=== PATIENT | male | born 1950 | race Caucasian/White ===

== ENCOUNTER 2019-11-11 11:10 | Emergency (ER) | payer MEDICARE, OTHER ==
[~2019-11-11] VITALS: Ht 190.5 cm; Wt 103.9 kg
[~2019-11-11 11:10] MED LIST: ASPI-482 PO; FLUT9.9S NS; LORA10TA68 PO
[2019-11-11 11:15] VITALS: BP 126/67
--- NOTE | 2019-11-11 12:11 | PHYS DOC ---
General Adult EDM: Chief Complaint: LACERATION/AVULSION HPI: HPI: 69-year-old male presents with laceration of the right ring finger. The patient was working on a car when some piece of metal where he was working cut his finger. His tetanus is not up-to-date. He thought it looked like he needs stitches so he came to the emergency room. Bleeding was controlled prior to arrival. He denies any other injuries or complaints. Review of Systems: Review of Systems: Constitutional: Denies fever or chills Eyes: Denies change in visual acuity HENT: Denies nasal congestion or sore throat Respiratory: Denies cough or shortness of breath Cardiovascular: Denies chest pain or edema GI: Denies abdominal pain, nausea, vomiting, bloody stools or diarrhea : Denies dysuria Musculoskeletal: Denies back pain or joint pain Integument: 3 cm laceration above the right ring finger Neurologic: Denies headache, focal weakness or sensory changes Endocrine: Denies polyuria or polydipsia Lymphatic: Denies swollen glands Psychiatric: Denies depression or anxiety Heart Score: Risk Factors: Risk Factors: DM, Current or recent (<one month) smoker, HTN, HLP, family history of CAD, obesity. Risk Scores: Score 0 - 3: 2.5% MACE over next 6 weeks - Discharge Home Score 4 - 6: 20.3% MACE over next 6 weeks - Admit for Clinical Observation Score 7 - 10: 72.7% MACE over next 6 weeks - Early Invasive Strategies Allergies: Allergies: Allergies Coded Allergies Type Severity Reaction Last Updated Verified Penicillins Allergy Mild RASH 12/05/14 Yes codeine Allergy Mild RASH 12/05/14 Yes Physical Exam: PE: Constitutional: Well developed, well nourished, no acute distress, non-toxic appearance. [] HENT: Normocephalic, atraumatic, bilateral external ears normal, oropharynx moist, no oral exudates, nose normal. [] Eyes: PERRLA, EOMI, conjunctiva normal, no discharge. [] Neck: Normal range of motion, no tenderness, supple, no stridor. [] Cardiovascular:Heart rate regular rhythm, no murmur [] Lungs & Thorax: Bilateral breath sounds clear to auscultation [] Abdomen: Bowel sounds normal, soft, no tenderness, no masses, no pulsatile masses. [] Skin: 3 cm linear laceration of the right ring finger [] Back: No tenderness, no CVA tenderness. [] Extremities: No tenderness, no cyanosis, no clubbing, ROM intact, no edema. [] Neurologic: Alert and oriented X 3, normal motor function, normal sensory function, no focal deficits noted. [] Psychologic: Affect normal, judgement normal, mood normal. [] Current Patient Data: Vital Signs: Vital Signs Date Time Temp Pulse Resp B/P (MAP) Pulse Ox O2 Delivery O2 Flow Rate FiO2 11/11/19 11:10 97.8 72 16 126/67 (86) 97 Room Air EKG: EKG: [] Radiology/Procedures: Radiology/Procedures: [] Course & Med Decision Making: Course & Med Decision Making Pertinent Labs and Imaging studies reviewed. (See chart for details) I repaired the patient's laceration with sutures. See note below for more details. He was given a tetanus shot in the emergency room. He is stable for discharge at this time. [] Dragon Disclaimer: Dragon Disclaimer: This electronic medical record was generated, in whole or in part, using a voice recognition dictation system. Laceration Repair Lac Repair Indication: [] 3 cm laceration right ring finger Procedure: I obtained verbal consent from the patient for suture repair of the laceration of his right ring finger. The wound was anesthetized with 1% lidocaine without epinephrine. A total of 1.5 cc was used. Once good anesthesia was achieved, I irrigated the wound with saline under pressure. There were no foreign bodies. I repaired the wound with four 3-0 Ethilon sutures in interrupted fashion. There was good skin approximation. Bleeding was controlled. The patient's tetanus was updated in the emergency room. Total repaired wound length: [3 cm Other Items: None The patient tolerated the procedure well Complications: [None. Departure Departure: Impression: Primary Impression: Laceration of right ring finger Qualified Codes: S61.214A - Laceration without foreign body of right ring finger without damage to nail, initial encounter Disposition: 01 HOME/RESIDENCE PRIOR TO ADM Condition: STABLE Referrals: MAIRA MACHADO MD (PCP) Patient Instructions: Sutured Wound Care, [id number] Justification of Admission: Justification of Admission: Justification of Admission Dx: N/A CHRISTOPHER HERNANDES DO Nov 11, 2019 12:11
[2019-11-11] MEDS ORDERED: DIPH,PERTUSS(ACELL),TET VAC/PF 0.5 ML SYRINGE. VAX IM ONE (12:15)
== END 2019-11-11 12:20 | disposition home or self-care (01) ==
LOC: ER 11:10
DX: S61.214A Laceration without foreign body of right ring finger without damage to nail, initial encounter (principal); Z88.0 Allergy status to penicillin; Z88.5 Allergy status to narcotic agent; W26.8XXA Contact with other sharp object(s), not elsewhere classified, initial encounter; Y93.89 Activity, other specified; Y92.89 Other specified places as the place of occurrence of the external cause; Y99.8 Other external cause status
CPT/HCPCS: 12001; 90471; 90715; 99283-25

== ENCOUNTER → 2020-04-08 | Outpatient (CLI) | payer MEDICARE, OTHER ==
--- NOTE | 2020-04-08 08:44 | RAD ---
EXAM: Abdominal aortic sonogram. HISTORY: Aneurysm screen. TECHNIQUE: Sonographic imaging of the abdominal aorta was performed. COMPARISON: None. FINDINGS: The proximal abdominal aorta measures 2.1 cm in caliber. The mid abdominal aorta measures 2 .4 cm in caliber. The distal abdominal aorta measures 2.1 cm in caliber. The common iliac arteries me asure 1.1 cm and 1.4 cm. IMPRESSION: No sonographic evidence of an abdominal aortic aneurysm. Electronically signed by: Virginia Schroeder MD (04/08/2020 8:42 AM) [id number]
== END ==
LOC: US 07:48
PROVIDERS: ATTEND Specialist
DX: Z00.00 Encounter for general adult medical examination without abnormal findings (principal); Z87.891 Personal history of nicotine dependence
CPT/HCPCS: 76770

== ENCOUNTER → 2020-05-17 | Outpatient (CLI) | payer MEDICARE, OTHER | LOC: LAB 10:00 | PROVIDERS: ATTEND Nurse Anesthetist, Certified Registered | DX: Z01.812 Encounter for preprocedural laboratory examination (principal); Z20.822 Contact with and (suspected) exposure to COVID-19 | CPT/HCPCS: U0003 ==

== ENCOUNTER → 2020-05-21 | Day surgery (SDC) | payer MEDICARE, OTHER ==
[~2020-05-21] MED LIST changes: +IPRATRPIUM/ALBUTEROL 0.5/2.5MG 3 ML NEBU. NEB PRN; +IV RINGERS SOLUTION,LACTATED 1,000 ML IV SCH; +LIDOCAINE 2% PF 5 ML VIAL. ONE; +MIDAZOLAM HCL PF 2 MG/2 ML VIAL. IV ONE; +ONDANSETRON PF 4 MG/2 ML VIAL. IV PRN; +PROPOFOL 10,000 MCG/ML (20ML) VIAL IV ONE
[2020-05-21 09:05] VITALS: BP 115/66
== END | disposition home or self-care (01) ==
LOC: SURG 07:25
PROVIDERS: ATTEND Internal Medicine Gastroenterology
DX: Z12.11 Encounter for screening for malignant neoplasm of colon (principal); K57.30 Diverticulosis of large intestine without perforation or abscess without bleeding; Z80.0 Family history of malignant neoplasm of digestive organs; Z86.010 Personal history of colon polyps; Z79.899 Other long term (current) drug therapy; Z88.0 Allergy status to penicillin; Z88.5 Allergy status to narcotic agent; Z79.82 Long term (current) use of aspirin; Z72.89 Other problems related to lifestyle; Z87.891 Personal history of nicotine dependence
CPT/HCPCS: G0105; J2001; J2704; J7120; 45378

== ENCOUNTER → 2020-07-30 | Outpatient (CLI) | payer MEDICARE, OTHER ==
[~2020-07-30] MED LIST changes: +IOHEXOL 350 MG/ML 100 ML VIAL. IV ONE; -IPRATRPIUM/ALBUTEROL 0.5/2.5MG 3 ML NEBU. NEB PRN; -IV RINGERS SOLUTION,LACTATED 1,000 ML IV SCH; -LIDOCAINE 2% PF 5 ML VIAL. ONE; -MIDAZOLAM HCL PF 2 MG/2 ML VIAL. IV ONE; -ONDANSETRON PF 4 MG/2 ML VIAL. IV PRN; -PROPOFOL 10,000 MCG/ML (20ML) VIAL IV ONE
--- NOTE | 2020-07-30 13:49 | RAD ---
CTA OF THE CHEST WITH AND WITHOUT CONTRAST Clinical indications: Left-sided chest pain for 3 weeks Technique: Noncontrast axial localizer was performed. After IV infusion of contrast, helical CT scann ing of the chest was performed using the CTA pulmonary embolism protocol. Coronal and sagittal MIP re constructions were generated. PQRS compliance Statement One or more of the following individualized dose reduction techniques were utilized for this study: 1. Automated exposure control 2. Adjustment of the mA and/or kV according to patient size 3. Use of iterative reconstruction technique Comparison: None available. Findings: No pulmonary embolism is seen. No focal aneurysmal dilatation or dissection of the thoracic aorta is seen. Excluding pericardial fat, the heart size is within normal limits. No pericardial eff usion is seen. No enlarged thoracic lymphadenopathy is seen. No pleural effusion or pneumothorax is e vident. There is linear atelectasis of the inferior segment of the lingula. No lung mass or lung cons olidation is seen. The proximal bronchial tree is patent. No adrenal mass is seen. There is a moderat e compression fracture of T12. IMPRESSION: No pulmonary embolism. No acute consolidative lung infiltrate. Moderate compression fracture of T12 of indeterminate age. Electronically signed by: Kamran Enciso MD (07/30/2020 1:46 PM) [id number]
== END ==
LOC: CT 13:12
PROVIDERS: ATTEND Specialist
DX: J98.11 Atelectasis (principal); S22.089A Unspecified fracture of T11-T12 vertebra, initial encounter for closed fracture; X58.XXXA Exposure to other specified factors, initial encounter; Y93.89 Activity, other specified; Y92.89 Other specified places as the place of occurrence of the external cause; Y99.8 Other external cause status
CPT/HCPCS: 71275; Q9967

== ENCOUNTER 2020-08-09 23:25 | Inpatient (IN) | payer MEDICARE, OTHER ==
[~2020-08-09] VITALS: Ht 190.5 cm; Wt 105.9 kg
[~2020-08-09 23:25] MED LIST changes: -IOHEXOL 350 MG/ML 100 ML VIAL. IV ONE
--- NOTE | 2020-08-10 00:21 | PHYS DOC ---
Past History Past Medical History: Depression, High Cholesterol, Other Additional Past Medical Histor: PAIN IN KNEES, ENLARGED PROSTATE, RESTLESS LEGS Past Surgical History: Tonsillectomy, Other Additional Past Surgical Histo: RT KNEE, VASECTOMY Alcohol Use: None Adult General Chief Complaint Chief Complaint: COUGH HPI HPI Patient is a 70-year-old male with past medical history significant for hypertension, hyperlipidemia and smoking who presents to the emergency department with a chief complaint of cough and fever at home. States that over the past 4 days he has had a productive cough with green sputum and over the last day he has had a coughing spells with streaks of blood in his sputum as well. States he never had anything like this before. States he had a Covid test earlier in the week that was negative. States he has some mild generalized pleuritic chest pain, 5 out of 10, sharp in nature. Denies any recent traumas, travel, other illnesses. Denies any known ill contacts. Review of Systems Review of Systems Review of systems otherwise unremarkable except noted in HPI Allergies Allergies Allergies Coded Allergies Type Severity Reaction Last Updated Verified Penicillins Allergy Mild RASH 12/05/14 Yes codeine Allergy Mild RASH 12/05/14 Yes Physical Exam Physical Exam Constitutional: Well developed, well nourished, no acute distress, non-toxic appearance. [] HENT: Normocephalic, atraumatic, bilateral external ears normal, oropharynx moist, no oral exudates, nose normal. [] Eyes: conjunctiva normal, no discharge. [] Neck: Normal range of motion, no tenderness, supple, no stridor. [] Cardiovascular:Heart rate regular rhythm, no murmur Lungs & Thorax: Decreased lung sounds, more on the right and marked with rhonchi more on the right and left Abdomen: soft, no tenderness, no masses, no pulsatile masses. [] Skin: Warm, dry, no erythema, no rash. [] Back: No tenderness, Extremities: No tenderness, no cyanosis, no clubbing, ROM intact, no edema. [] Neurologic: Alert and oriented X 3, normal motor function, normal sensory function, no focal deficits noted. [] Psychologic: Affect normal, judgement normal, mood normal. [] Current Patient Data Vital Signs Vital Signs Date Time Temp Pulse Resp B/P (MAP) Pulse Ox O2 Delivery O2 Flow Rate FiO2 08/09/20 23:25 99.4 90 18 120/66 (84) 97 Room Air EKG EKG EKG with a rate of 81, QRS of 84, QTc of 426, no STEMI [] Radiology/Procedures Radiology/Procedures [] Heart Score C/O Chest Pain: Yes HEART Score for Chest Pain: HEART Score for Chest Pain Response (Comments) Value History Slighlty/Non-Suspicious 0 ECG Normal 0 Age > 65 2 Risk Factors 1 or 2 Risk Factors 1 Total 3 Risk Factors: Risk Factors: DM, Current or recent (<one month) smoker, HTN, HLP, family history of CAD, obesity. Risk Scores: Risk Factors: DM, Current or recent (<one month) smoker, HTN, HLP, family history of CAD, obesity. Course & Med Decision Making Course & Med Decision Making Patient is a 70-year-old male who presents with cough and hemoptysis over the last 4 days Vital signs within normal limits but heart rate in the 90s and respiratory rate in the low 20s. Physical exam noted above. Patient placed on the monitor with IV access established. EKG noted above with no STEMI. Troponin normal. Laboratory analysis notable for mild leukocytosis. CT scan with large dense masslike opacity within the right lung and patchy groundglass opacities and lymphadenopathy with small right pleural effusion. Obtain blood cultures, started on IV fluid resuscitation and given broad- spectrum antibiotics. Discussed all findings with patient and recommended admission to the hospital for continued evaluation and treatment of his pneumonia versus mass and pleural effusion. Given patient's heart rate in the 90s and leukocytosis and possible source of infection patient does meet criteria for sepsis. Patient grateful, verbalized understanding and agreed with plan of admission. [] Dragon Disclaimer Dragon Disclaimer This electronic medical record was generated, in whole or in part, using a voice recognition dictation system. Departure Departure: Impression: Primary Impression: Pneumonia Additional Impressions: Leukocytosis Shortness of breath Pleuritic chest pain Hemoptysis Disposition: ADMITTED INPATIENT Condition: IMPROVED Referrals: MAIRA MACHADO MD (PCP) Problem Qualifiers FARZANEH BARAJAS MD August 10, 2020 00:21
[2020-08-10] MEDS ORDERED: IOHEXOL 350 MG/ML 100 ML VIAL. IV ONE (00:30)
[2020-08-10] MEDS ORDERED: CONTRAST GIVEN. MC PRN (00:30)
[2020-08-10 00:32] LABS: RED BLOOD COUNT 3.88 x10^6/uL (4.30-5.70); RED CELL DISTRIBUTION WIDTH 13.5 % (11.5-14.5); WHITE BLOOD COUNT 11.5 x10^3/uL (4.0-11.0)
[2020-08-10] MEDS ORDERED: IOHEXOL 300 MG/ML 75 ML VIAL. ONE (00:40)
[2020-08-10 00:49] LABS: CALCIUM 8.4 mg/dL (8.5-10.1); GFR 74.3; POTASSIUM 3.5 mmol/L (3.5-5.1)
[2020-08-10 00:56] LABS: ALBUMIN 2.6 g/dL (3.4-5.0); ALBUMIN/GLOBULIN RATIO 0.7 (1.0-1.7); TOTAL BILIRUBIN 0.7 mg/dL (0.2-1.0); TOTAL PROTEIN 6.6 g/dL (6.4-8.2)
--- NOTE | 2020-08-10 01:58 | RAD ---
INDICATION: Reason: OMNI 300, 75ML IV. Hemoptysis / Spl. Instructions: / History: COMPARISON: July 30, 2020 TECHNIQUE: Axial CT images obtained through the chest. Intravenous contrast utilized. One or more of the following individualized dose reduction techniques were utilized for this examinat ion: 1. Automated exposure control; 2. Adjustment of the mA and/or kV according to patient size; 3 . Use of iterative reconstruction technique. FINDINGS: Linear atelectasis left lung base. Small right pleural effusion. Dense masslike opacity right perihil ar region measuring 65 mm with adjacent groundglass opacities. Small hiatal hernia suspected. Degenerative changes the spine. Prominent lymph nodes in the mediastinum could be reactive. Motion obscures portion of ascending thoracic aorta but no aneurysm is seen. Very little contrast wit hin pulmonary arteries. Heterogeneity of the thyroid. Moderate T12 compression fracture again seen IMPRESSION: Dense masslike opacity within the right lung with patchy groundglass opacities. Could be infectious i n nature but follow-up could be obtained to ensure appropriate resolution. There is lymphadenopathy w hich may be reactive in nature. Electronically signed by: Fabricio Alarcon MD (08/10/2020 1:55 AM) [id number]
[2020-08-10] MEDS: MORPHINE SULFATE 4 MG/ML DISP.SYRIN. IV ONE ×2 (02:21→03:42)
--- NOTE | 2020-08-10 02:57 | EKG ---
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
[2020-08-10] MEDS ORDERED: IV RINGERS SOLUTION,LACTATED 1,000 ML IV ONE (03:00)
[2020-08-10 05:07] VITALS: BP 147/74
--- NOTE | 2020-08-10 05:07 | NUR ---
The patient, BEATRIS SPANGLER, 70 y/o, M admitted by JOHANA CALDERON MD, was given written information regarding hospital policies, unit procedures and contact persons. Valuables were checked and logged. Call light in place.
[2020-08-10] MEDS ORDERED: SIMV20TA18 PO (07:20)
[2020-08-10] MEDS ORDERED: TAMSULOSIN PO (07:20)
[2020-08-10] MEDS ORDERED: PRAM1TAB PO (07:20)
[2020-08-10] MEDS ORDERED: BUPR75TA6 PO (07:20)
[2020-08-10] MEDS ORDERED: MELO7.5T29 PO (07:20)
[2020-08-10] MEDS ORDERED: FLUT16SP21 NS (07:20)
[2020-08-10] MEDS ORDERED: TRAZ-120 PO (07:20)
[2020-08-10] MEDS ORDERED: FLUO40CA2 PO (07:20)
[2020-08-10 11:36] VITALS: BP 135/81
[2020-08-10] MEDS ORDERED: traZODone 50 MG TABLET. PO PRN (15:15)
[2020-08-10] MEDS ORDERED: HYDROcodone/APAP 5/325MG 1 TAB TABLET PO PRN (15:30)
[2020-08-10] MEDS ORDERED: ACETAMINOPHEN 325 MG TABLET PO PRN (15:30)
[2020-08-10] MEDS ORDERED: DEXAMETHASONE SOD PHOS 10 MG/ML VIAL. IV ONE (15:30)
--- NOTE | 2020-08-10 16:44 | HP ---
ADMIT DATE: 08/10/2020 HISTORY OF PRESENT ILLNESS: The patient is a 70-year-old male patient who presented to the Emergency Room of [facility] with complaint of cough and fever at home. This has been going on for the last 4 days. He has had a cough with greenish sputum, and over the last day, he has also episode of cough with streaks of blood. He has never had anything like this before. States he tested positive for COVID. Early in the week, it was negative. He was positive in ____. He also complains of generalized pleuritic chest pain rated as 5-6 sharp in nature. Denied any recent trauma, travel or other illnesses. Denied any known ill contact. 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 He was extensively evaluated in the emergency room, has had lab work including a CBC and CMP. His white cell count was slightly elevated at 11,500. His chemistry was mostly unremarkable except high blood sugar, and his coagulation tests including PT, INR and APTT were all normal. He has actually a CT scan of the chest, which has showed that the patient has linear atelectasis at the left lung base, small right-sided pleural effusion, has a dense mass-like opacity of right perihilar region measuring 65 mm with adjacent ground-glass opacities, small hiatal hernia suspected. He also had prominent lymph nodes in the mediastinum that could be reactive. There are degenerative changes of the spine. Motion obscures portion of the ascending thoracic aorta, but no aneurysm is seen. Very little contrast within the pulmonary arteries. Heterogeneity of the thyroid. Moderate T12 compression fracture again seen. The patient was admitted with possible COVID-19 pneumonia superimposed on possible mass in the right lung. He was treated with levofloxacin and IV fluid together with pain medication, was admitted for further evaluation and treatment. PAST MEDICAL HISTORY: He is known to have hyperlipidemia, nephrolithiasis, benign prostatic hypertrophy, severe osteoarthritis of both knee joints. He is known to have cataracts also. He tested positive for COVID-19 in 02/2020, although he has never been admitted to the hospital. PAST SURGICAL HISTORY: Significant for tonsillectomy, ACL repair of the right knee, vasectomy, tooth extraction, colonoscopy, and esophagogastroduodenoscopy. ALLERGIES: HE IS ALLERGIC TO PENICILLIN AND CODEINE. MEDICATIONS: He is on loratadine 10 mg once a day, simvastatin 20 mg at bedtime, aspirin 81 mg once a day, meloxicam 7.5 mg twice a day, Wellbutrin 75 mg daily, fluoxetine 40 mg daily, trazodone 50 mg 2 tablets at bedtime for insomnia. He is on pramipexole dihydrochloride 1 mg at bedtime, probably for restless leg syndrome, Flonase 2 sprays to each nostril once a day for allergic rhinitis, and tamsulosin 0.4 mg daily. FAMILY HISTORY: He has 1 younger sister. His younger is sister alive, has diabetes. Brother at age of 57 because of motorcycle accident. His father at age of 85 because of colon cancer. Mother at age of 85 because of chronic kidney disease. SOCIAL HISTORY: He is , has 2 biological sons from a previous marriage and has 3 stepdaughters from current marriage. He quit smoking 46 years ago. Drinks alcohol occasionally. Does not use any drugs. 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 REVIEW OF SYSTEMS: The patient has bilateral sensorineural deafness and is wearing hearing aids. He has cataracts, but denied any glaucoma or macular degeneration. Does have a stuffy nose, as he has allergic rhinitis. Denied any sore throat, sore tongue, toothache, hoarseness of voice, or difficulty swallowing. No nausea or vomiting. No diarrhea or constipation. He has never had any hematemesis or melena, although he underwent a colonoscopy and esophagogastroduodenoscopy. Does complain of nocturia and he is on Flomax for that, but his PSA has been consistently within normal range. He has generalized chest pain that is pleuritic in nature, also shortness of breath, but denied any orthopnea or paroxysmal nocturnal dyspnea. He has cough with greenish sputum with streaks of blood, has also fever up to 101.5, but denied any dizziness, lightheadedness or vertigo. PHYSICAL EXAMINATION: GENERAL: On arrival to the emergency room, the patient looked well and was clearly in no apparent respiratory distress. There was no pallor, jaundice, cyanosis, or thyromegaly. No jugular venous distention. No limb edema. VITAL SIGNS: Heart rate was 80, blood pressure is 120/66, temperature was 99.4, respiratory rate was 18, and oxygen saturation was 97% on room air. HEAD, EYES, EARS, NOSE, AND THROAT: Showed he is normocephalic, atraumatic. NECK: Supple. HEART: Showed normal first and second heart sounds. No gallop or murmur. CHEST: Clear to auscultation. No crepitation or rhonchi. ABDOMEN: Distended, soft, nontender. NEUROLOGIC: He was awake, alert, responding appropriately. Cranial nerves intact. He moves extremities without difficulty. He ambulates without assistance or assistive devices. LABORATORY DATA: On arrival to the Emergency Room showed a white cell count of 11,500, hemoglobin 13, hematocrit 38, MCV 98, and platelet count 212,000. Serum sodium 141, potassium 3.5, chloride 108, bicarbonate 22, anion gap of 11, BUN 23, creatinine 1, estimated GFR was 74 mL per minute. His glucose 187, calcium was 8.4. Total bilirubin, AST, ALT, alkaline phosphatase normal. Troponin was less than 0.017. His total protein was 6.6, albumin was 2.6. His prothrombin time was 10.6, INR of 1, APTT was 31. A CT scan of the chest with IV contrast showed the patient has dense mass-like opacity within the right lung with patchy ground-glass opacities, could be infectious in nature, but followup could be obtained to ensure appropriate resolution. There is also lymphadenopathy, which may be reactive in nature. ASSESSMENT AND PLAN: The patient was admitted with a diagnosis of community-acquired pneumonia, possible COVID-19 pneumonia, possible mass in the right lung. He has mild leukocytosis. He is also short of breath with 2 episodes of hemoptysis. Plan is to continue with IV antibiotic. We will start him on dexamethasone and Lovenox for DVT prophylaxis. His family wants him to be transferred to [facility], so I will obviously do my best to transfer him there. He has multiple other medical problems including hyperlipidemia, benign prostatic hypertrophy, severe osteoarthritis of both knee joints, more on the right than left. WILLIAM/HUSSAIN/AKHIL DR: Suha TID: [id number]
[2020-08-10] MEDS ORDERED: ENOXAPARIN 40 MG/0.4 ML SYRINGE. SQ SCH (17:00)
--- NOTE | 2020-08-10 18:22 | NUR ---
PT IS XFERED TO [facility]. REPORT CALLED TO BAKARI. PT IS STABLE AT TIME OF XFER. ALL LABS NOTES AND IMAGING SENT WITH PT AT TIME OF XFER. PT IS ESCORTED OFF OF UNIT ACCOMPANIED BY EMS.
[2020-08-10] MEDS ORDERED: PRAMIPEXOLE 0.5 MG TABLET. PO SCH (21:00)
[2020-08-10] MEDS ORDERED: LACTOBACILLUS RHAMNOSUS GG 1 CAPSULE. PO SCH (21:00)
[2020-08-10] MEDS ORDERED: SIMVASTATIN 20 MG TABLET PO SCH (21:00)
[2020-08-10] MEDS ORDERED: MELOXICAM 7.5 MG TABLET PO SCH (21:00)
[2020-08-11] MEDS ORDERED: CETIRIZINE HCL 10 MG TABLET PO SCH (09:00)
[2020-08-11] MEDS ORDERED: FLUTICASONE 50MCG/NASAL SPRAY 16GM BOTTLE. NS SCH ×2 (09:00)
[2020-08-11] MEDS ORDERED: buPROPion 75 MG TABLET PO SCH (09:00)
[2020-08-11] MEDS ORDERED: ASPIRIN ENTERIC COATED 81 MG TABLET.DR. PO SCH (09:00)
[2020-08-11] MEDS ORDERED: FLUoxetine HCL 20 MG CAPSULE PO SCH (09:00)
[2020-08-11] MEDS ORDERED: TAMSULOSIN 0.4 MG CAP.ER.24H. PO SCH (09:00)
== END 2020-08-10 18:22 | disposition short-term general hospital (02) | DRG 177 ==
LOC: ER 23:25 → 1 SOUTH 08-10 03:50
PROVIDERS: ADMIT Internal Medicine; ATTEND Internal Medicine
DX: J15.6 Pneumonia due to other Gram-negative bacteria (principal); E43 Unspecified severe protein-calorie malnutrition; R04.2 Hemoptysis; J98.11 Atelectasis; J15.9 Unspecified bacterial pneumonia; E78.00 Pure hypercholesterolemia, unspecified; E78.5 Hyperlipidemia, unspecified; G25.81 Restless legs syndrome; I10 Essential (primary) hypertension; M19.90 Unspecified osteoarthritis, unspecified site; N40.0 Benign prostatic hyperplasia without lower urinary tract symptoms; F32.9 Major depressive disorder, single episode, unspecified; D72.829 Elevated white blood cell count, unspecified; Z20.822 Contact with and (suspected) exposure to COVID-19; R91.8 Other nonspecific abnormal finding of lung field; Z80.0 Family history of malignant neoplasm of digestive organs; Z83.3 Family history of diabetes mellitus; Z87.442 Personal history of urinary calculi; Z87.891 Personal history of nicotine dependence; Z88.5 Allergy status to narcotic agent; Z88.0 Allergy status to penicillin; Z68.29 Body mass index [BMI] 29.0-29.9, adult
CPT/HCPCS: 36415; 71260; 80053; 84484; 85027; 85610; 85730; 87040; 93005; 96365; J1100; J1650; J1956; J2270; J7120; U0003; 99285-25

== ENCOUNTER → 2020-08-27 | Outpatient (CLI) | payer MEDICARE, OTHER ==
[2020-08-10 11:36] VITALS: BP 135/81
[~2020-08-27] MED LIST changes: +BUPR75TA6 PO; +FLUO40CA2 PO; +FLUT16SP21 NS; +MELO7.5T29 PO; +PRAM1TAB PO; +SIMV20TA18 PO; +TAMSULOSIN PO; +TRAZ-120 PO
--- NOTE | 2020-08-27 11:00 | RAD ---
EXAM: CHEST 2 VIEWS. HISTORY: Pneumonia. COMPARISON: CT 08/10/2020, 07/30/2020. FINDINGS: Frontal and lateral views of the chest are obtained. A rounded opacity persists in the right mid lung, corresponding with a region of consolidation in the right upper lobe on recent CT. This was a new finding between 07/30/2020 and 08/10/2020, favoring pneu monia over a mass. The region spans 6.5 x 5.9 cm radiographically and remains indeterminate by this t echnique. The left lung remains clear. Mild blunting of the costophrenic angles consistent with trace pleural e ffusions. There is no pneumothorax. The heart is not enlarged. IMPRESSION: 1. Persistent right midlung opacity, most likely reflecting pneumonic consolidation given findings of the 2 most recent CTs. Follow-up to resolution is recommended. If the clinical presentation is not c onsistent with pneumonia, sooner intervention/biopsy could be considered. Electronically signed by: Albin Davidson MD (08/27/2020 10:57 AM) [id number]
== END ==
LOC: RAD 10:41
PROVIDERS: ATTEND Specialist
DX: R91.8 Other nonspecific abnormal finding of lung field (principal); J18.9 Pneumonia, unspecified organism
CPT/HCPCS: 71046

== ENCOUNTER 2020-09-17 07:57 | Emergency (ER) | payer MEDICARE, OTHER ==
[~2020-09-17] VITALS: Ht 190.5 cm; Wt 108.3 kg
[2020-09-17 08:24] LABS: BASO % 0 % (0-3); EOS # 0.1 x10^3/uL (0.0-0.7); EOS % 0 % (0-3); HEMATOCRIT 37.7 % (39.0-53.0); HEMOGLOBIN 12.5 g/dL (13.0-17.5); LYMPH # 0.9 x10^3/uL (1.0-4.8); LYMPH % 3 % (24-48); MEAN CORPUSCULAR HEMOGLOBIN 32 pg (25-35); MEAN CORPUSCULAR HGB CONC 33 g/dL (31-37); MEAN CORPUSCULAR VOLUME 96 fL (79-100); MONO # 0.9 x10^3/uL (0.0-1.1); MONO % 3 % (0-9); NEUT # 28.7 x10^3uL (1.8-7.7); NEUT % 94 % (31-73); PLATELET COUNT 366 x10^3/uL (140-400); RED BLOOD COUNT 3.93 x10^6/uL (4.30-5.70); RED CELL DISTRIBUTION WIDTH 14.3 % (11.5-14.5); WHITE BLOOD COUNT 30.6 x10^3/uL (4.0-11.0)
[2020-09-17] MEDS ORDERED: methylPREDNISolone SOD SUCC PF 125 MG/2 ML VIAL. IV ONE (08:30)
[2020-09-17] MEDS ORDERED: CEFEPIME HCL 1 GM VIAL ONE (08:35)
[2020-09-17] MEDS ORDERED: IV NORMAL SALINE 50ML 50 ML ONE (08:35)
[2020-09-17 08:41] LABS: ALBUMIN 2.4 g/dL (3.4-5.0); ALBUMIN/GLOBULIN RATIO 0.6 (1.0-1.7); CALCIUM 7.9 mg/dL (8.5-10.1); CREATININE 0.9 mg/dL (0.7-1.3); GFR 83.9; POTASSIUM 3.5 mmol/L (3.5-5.1); TOTAL BILIRUBIN 0.6 mg/dL (0.2-1.0); TOTAL PROTEIN 6.4 g/dL (6.4-8.2)
--- NOTE | 2020-09-17 08:41 | RAD ---
EXAM: CHEST ONE VIEW. HISTORY: Shortness of breath, chest pain. COMPARISON: 08/27/2020. FINDINGS: A frontal view of the chest is obtained. A right mid lung mass or focal infiltrate measures 6.2 x 3.6 cm. It is now partially obscured by surr ounding infiltrates. A small to moderate right pleural effusion has developed in the interval. There is milder atelectasis in the left base. There is no pneumothorax. The heart is not enlarged. IMPRESSION: 1. Infiltrates and a small to moderate right pleural effusion have developed in the interval, and par tially obscure the right midlung mass. Electronically signed by: Albin Davidson MD (09/17/2020 8:38 AM) [id number]
[2020-09-17] MEDS: CEFEPIME HCL 1 GM in IV NORMAL SALINE 50ML 50 ML IV SCH ×2 (08:42→09:57)
[2020-09-17] MEDS ORDERED: MORPHINE SULFATE 4 MG/ML DISP.SYRIN. IV ONE (09:00)
[2020-09-17] MEDS ORDERED: MORPHINE SULFATE 10 MG/ML SYRINGE. IV ONE (09:15)
[2020-09-17 09:22] LABS: % BANDS 1 % (0-9); % LYMPHS 3 % (24-48); % METAS 1 % (0-0); % MONOS 4 % (0-10); % SEGS 91 % (35-66); PLT ESTIMATE ADEQUATE (ADEQUATE)
[2020-09-17] MEDS ORDERED: guaiFENesin 300 MG/15 ML LIQUID PO ONE (10:00)
--- NOTE | 2020-09-17 10:26 | PHYS DOC ---
Past History Past Medical History: Depression, High Cholesterol, Other Additional Past Medical Histor: PAIN IN KNEES, ENLARGED PROSTATE, RESTLESS LEGS Past Surgical History: Tonsillectomy, Other Additional Past Surgical Histo: RT KNEE, VASECTOMY Alcohol Use: None Adult General Chief Complaint Chief Complaint: SHORTNESS OF BREATH HPI HPI Patient 70-year-old male who presents to the emergency room complaining of right chest wall pain. Patient states that at the beginning of July he developed pneumonia. He was admitted at that time and placed on IV antibiotics. He is also been admitted to [facility] beds at the [facility] for the same pneumonia. He has had 2 CT scans that it showed consolidation. He has been on multiple antibiotics. Last week he saw his primary care doctor who put him on prednisone and azithromycin for pneumonia again. He states that he has been coughing quite a bit and has been having intermittent fevers. He states that he developed this right-sided chest wall pain yesterday which has progressively gotten worse. He states now if he tries to take a deep breath or cough he has excruciating sharp pain that radiates into his right shoulder. Review of Systems Review of Systems Complete ROS is negative unless otherwise documented in HPI Current Medications Current Medications Current Medications Medications (Trade) Dose Ordered Sig/En Start Time Stop Time Status Last Admin Dose Admin Cefepime HCl (Maxipime) 1 gm STK-MED ONCE 09/17/20 08:35 09/17/20 08:36 DC Cefepime HCl 1 gm/ Sodium Chloride 50 ml @ 100 mls/hr Q8HRS 09/17/20 09:00 09/17/20 08:42 100 MLS/HR Guaifenesin (Robitussin) 300 mg 1X ONCE 09/17/20 10:00 09/17/20 10:02 DC 09/17/20 10:11 300 MG Methylprednisolone Sodium Succinate (SOLU-Medrol 125MG VIAL) 60 mg 1X ONCE 09/17/20 08:30 09/17/20 08:31 DC 09/17/20 08:40 60 MG Morphine Sulfate (Morphine 10mg Syringe) 6 mg 1X ONCE 09/17/20 09:15 09/17/20 09:16 DC Morphine Sulfate (Morphine 4mg Syringe) 6 mg 1X ONCE 09/17/20 09:00 09/17/20 09:09 DC 09/17/20 09:03 6 MG Sodium Chloride 50 ml @ As Directed STK-MED ONCE 09/17/20 08:35 09/17/20 08:36 DC Allergies Allergies Allergies Coded Allergies Type Severity Reaction Last Updated Verified Penicillins Allergy Mild RASH 12/05/14 Yes codeine Allergy Mild RASH 12/05/14 Yes Physical Exam Physical Exam General: Awake, alert, NAD. Well Nourished, well hydrated. Cooperative HEENT: Atraumatic, EOMI, PERRL, airway patent, moist oral mucosa Neck: Supple, trachea midline Respiratory: Decreased breath sounds at right base and right middle lobe with crackles, left lung clear to auscultation, normal effort CV: RRR, no murmur, cap refill <2 GI: Soft, nondistended, nontender, no masses MSK: No obvious deformities Skin: Warm, dry, intact Neuro: A&O x3, speech NL, sensory and motor grossly intact, no focal deficits Psych: Normal affect, normal mood, not suicidal or homicidal Current Patient Data Vital Signs Vital Signs Date Time Temp Pulse Resp B/P (MAP) Pulse Ox O2 Delivery O2 Flow Rate FiO2 09/17/20 09:03 24 92 2.0 09/17/20 07:57 98.3 95 131/83 (99) Room Air Lab Results Laboratory Tests Test 09/17/20 08:00 09/17/20 08:35 White Blood Count 30.6 x10^3/uL (4.0-11.0) H Red Blood Count 3.93 x10^6/uL (4.30-5.70) L Hemoglobin 12.5 g/dL (13.0-17.5) L Hematocrit 37.7 % (39.0-53.0) L Mean Corpuscular Volume 96 fL (79-100) Mean Corpuscular Hemoglobin 32 pg (25-35) Mean Corpuscular Hemoglobin Concent 33 g/dL (31-37) Red Cell Distribution Width 14.3 % (11.5-14.5) Platelet Count 366 x10^3/uL (140-400) Neutrophils (%) (Auto) 94 % (31-73) H Lymphocytes (%) (Auto) 3 % (24-48) L Monocytes (%) (Auto) 3 % (0-9) Eosinophils (%) (Auto) 0 % (0-3) Basophils (%) (Auto) 0 % (0-3) Neutrophils # (Auto) 28.7 x10^3uL (1.8-7.7) H Lymphocytes # (Auto) 0.9 x10^3/uL (1.0-4.8) L Monocytes # (Auto) 0.9 x10^3/uL (0.0-1.1) Eosinophils # (Auto) 0.1 x10^3/uL (0.0-0.7) Basophils # (Auto) 0.0 x10^3/uL (0.0-0.2) Segmented Neutrophils % 91 % (35-66) H Band Neutrophils % 1 % (0-9) Lymphocytes % 3 % (24-48) L Monocytes % 4 % (0-10) Metamyelocytes % 1 % (0-0) H Platelet Estimate Adequate (ADEQUATE) Sodium Level 145 mmol/L (136-145) Potassium Level 3.5 mmol/L (3.5-5.1) Chloride Level 108 mmol/L (98-107) H Carbon Dioxide Level 25 mmol/L (21-32) Anion Gap 12 (6-14) Blood Urea Nitrogen 29 mg/dL (8-26) H Creatinine 0.9 mg/dL (0.7-1.3) Estimated GFR (Cockcroft-Gault) 83.9 BUN/Creatinine Ratio 32 (6-20) H Glucose Level 162 mg/dL (70-99) H Calcium Level 7.9 mg/dL (8.5-10.1) L Total Bilirubin 0.6 mg/dL (0.2-1.0) Aspartate Amino Transferase (AST) 15 U/L (15-37) Alanine Aminotransferase (ALT) 30 U/L (16-63) Alkaline Phosphatase 91 U/L (46-116) Total Protein 6.4 g/dL (6.4-8.2) Albumin 2.4 g/dL (3.4-5.0) L Albumin/Globulin Ratio 0.6 (1.0-1.7) L D-Dimer (Catherine) 1.37 mg/L (0.00-0.50) H Lactic Acid Level 1.1 mmol/L (0.4-2.0) EKG EKG [] Radiology/Procedures Radiology/Procedures [] Heart Score C/O Chest Pain: N/A Risk Factors: Risk Factors: DM, Current or recent (<one month) smoker, HTN, HLP, family history of CAD, obesity. Risk Scores: Risk Factors: DM, Current or recent (<one month) smoker, HTN, HLP, family history of CAD, obesity. Course & Med Decision Making Course & Med Decision Making Pertinent Labs and Imaging studies reviewed. (See chart for details) Patient 70-year-old male who presents to the emergency room complaining of shortness of breath and right-sided chest wall pain. Chest x-ray shows continued pneumonia. Pneumonia is getting significantly worse. Blood cultures were ordered. Patient will need to be transferred to a hospital with infectious disease and pulmonology given that he has had the same pneumonia for 2 months. Patient would like to go to [facility] beds at the [facility]. We will attempt to transfer to [facility]. [facility] will accept the patient. At time of transfer patient was stable. Dragon Disclaimer Dragon Disclaimer This electronic medical record was generated, in whole or in part, using a voice recognition dictation system. Departure Departure: Impression: Primary Impression: Pneumonia Additional Impression: Pleural effusion Disposition: 02 SHORT TERM HOSPITAL Condition: STABLE Referrals: MAIRA MACHADO MD (PCP) Problem Qualifiers MAHSA LAUREN MD Sep 17, 2020 10:26
[2020-09-17 11:30] VITALS: BP 128/67
--- NOTE | 2020-09-17 21:34 | EKG ---
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
== END 2020-09-17 11:33 | disposition short-term general hospital (02) ==
LOC: ER 07:57
DX: J18.9 Pneumonia, unspecified organism (principal); J90 Pleural effusion, not elsewhere classified; E78.00 Pure hypercholesterolemia, unspecified; F32.9 Major depressive disorder, single episode, unspecified; Z88.0 Allergy status to penicillin; Z88.5 Allergy status to narcotic agent
CPT/HCPCS: 36415; 71045; 80053; 83605; 85007; 85025; 85379; 87040; 93005; 96374; 96375; 99285; J0692; J2270; J2930

== ENCOUNTER → 2020-11-18 | Outpatient (CLI) | payer MEDICARE, OTHER ==
--- NOTE | 2020-11-18 17:26 | RAD ---
Chest, PA and Lateral: Technique: PA and lateral views of the chest were obtained. History: Shortness of breath, pneumonia. Comparison: 09/17/2020. Findings/ impression: Mild cardiomegaly. Linear bibasilar lung airspace opacities likely atelectasis or infiltrates. Mild p rominent bilateral interstitial lung markings likely chronic interstitial changes. Small right pleura l effusion. Electronically signed by: Zana Wilkes MD (11/18/2020 5:24 PM) [id number]
== END ==
LOC: RAD 14:03
PROVIDERS: ATTEND Specialist
DX: J90 Pleural effusion, not elsewhere classified (principal); I51.7 Cardiomegaly
CPT/HCPCS: 71046

== ENCOUNTER → 2021-02-04 | Outpatient (CLI) | payer MEDICARE, OTHER ==
--- NOTE | 2021-02-04 11:27 | RAD ---
EXAM: Right toes, 3 views. HISTORY: Blunt trauma. COMPARISON: None. FINDINGS: 3 views of the right toes are obtained. There is deformity of the distal aspect of the fift h proximal phalanx, best seen on the oblique projection. This is likely a fracture of uncertain chron icity. There is no radiodense foreign body. IMPRESSION: Suspected fracture deformity involving the distal aspect of the fifth proximal phalanx, o f uncertain chronicity. Correlate for pain in this location. Electronically signed by: Virginia Schroeder MD (02/04/2021 11:24 AM) [id number]
== END ==
LOC: RAD 10:59
PROVIDERS: ATTEND Physician Assistant
DX: M79.671 Pain in right foot (principal)
CPT/HCPCS: 73660